=== PATIENT | female | born 1980 | race African-American/Black ===

== ENCOUNTER 2017-03-11 18:16 | Emergency (ER) | payer OTHER ==
[~2017-03-11] VITALS: Ht 170.2 cm; Wt 61.7 kg
[~2017-03-11 18:16] MED LIST: ATENOLOL25 MG PO; CARAFATE1 GM/10 M1 PO; CHANTIX1 MG PO; CYCLOBENZAPRINE10 M1 PO; DRISDOL50000 IU PO; GABAPENTIN400 M2 PO; GABAPENTIN400 MG PO; HUMALOG 100U100 U/ML SC; KETOROLAC TROME10 M1 PO; LEVEMIR FLEX100 U/ML SC; LEVEMIR100 U/ML SC; LEVEMIR100 UNIT/1 SC; LISINOPRIL10 MG PO; METHIMAZOLE10 MG PO; NEXIUM40 M1 PO; NOVOLOG100 U/ML SC; NOVOLOG100 UNIT/2 SC; OMEPRAZOLE20 M3 PO; PROTONIX 40MG T40 MG PO; TAPAZOLE 5 MG TA5 MG PO; VICODIN 300 MG-1 TAB PO; VITAMIN D250000 UNIT PO
--- NOTE | 2017-03-11 20:43 | ED HEADACHE COMPLAINT ---
History of Present Illness General Chief Complaint: Headache Stated Complaint: COHEN Source: patient Exam Limitations: no limitations Vital Signs & Intake/Output Vital Signs & Intake/Output Vital Signs Date Time Temp Pulse Resp B/P B/P Pulse O2 O2 Flow FiO2 Mean Ox Delivery Rate 03/11 2307 96.2 92 16 138/62 98 Room Air 03/11 1843 98.6 96 18 135/87 98 Room Air Allergies Coded Allergies: NO KNOWN ALLERGIES (06/02/14) Reconcile Medications Atenolol 25 MG TAB 1 TAB PO DAILY BP (Reported) Ergocalciferol (Vitamin D2) (Vitamin D2) 50,000 UNIT CAPSULE 1 CAP PO QSUN SUPPLEMENT (Reported) Gabapentin 400 MG CAPSULE 1 CAP PO BID NERVE PAIN (Reported) Gabapentin 400 MG CAP 2 CAP PO QPM NERVE PAIN (Reported) Insulin Aspart (Novolog) 100 UNIT/ML VIAL 0 UNITS SC TIDAC/HS DIABETES MELLITUS SLIDING SCALE BLOOD SUGAR before meals at bedtime LESS THAN 80mg/dl 0 units 0 units 80-150 mg/dl 2 units 0 units 151-200 mg/dl 3 units 0 units 201-250 mg/dl 4 units 0 units 251-300 mg/dl 5 units 2 units 301-350 mg/dl 6 units 3 units 351-400 mg/dl 7 units 4 units more than 400 mg/dl 8 units 5 units Insulin Detemir (Levemir) 100 UNIT/ML VIAL 5 UNITS SC BID DIABETES Methimazole (Tapazole 5 MG Tablet) 5 MG TAB 5 MG PO DAILY Grave's disease Omeprazole 20 MG TABLET.DR 1 TAB PO BID GI (Reported) Sucralfate (Carafate) 1 GRAM/10 ML ORAL.SUSP 10 ML PO TID GI (Reported) 1 hour before food Triage Note: PT TO TRIAGE WITH C/O MIGRAINE AND NAUSEA x1WEEK, PT HAS BEEN TAKING TYLENOL,MOTRIN, AND FIORICET WITH NO RELIEF. PAIN 8/. VSS. Triage Nurses Notes Reviewed? yes Onset: Gradual Duration: week(s): (1) Timing: multiple episodes today Quality/Severity: mild, moderate Head Injury Location: frontal No Modifying Factors: none : No Patient currently breastfeeds: No HPI: This is a 36-year-old female with history of insulin-dependent diabetes, hypertension, hypothyroidism who presents to the ER for chief complaint of migraine headache on and off for the past one week. Patient has a self-reported history of migraine headaches. She states that for the last 2 days she was headache free but then again this morning woke up with a headache. Headache is between her eyes and radiates to the back of her head. History of similar headaches but has never lasted this long. Denies any fever or chills but denies any confusion. Denies any trauma. She is not on any blood thinners. She's been trying [id number] medications without any relief. Patient is on insulin pump and blood sugars have been within normal limits. Last blood sugar in the ER today was 97. Past History Travel History Traveled to [place] past 21 day No Medical History Any Pertinent Medical History? see below for history Neurological: NONE EENT: NONE Cardiovascular: hypertension Respiratory: NONE Gastrointestinal: GERD Hepatic: NONE Renal: NONE Musculoskeletal: NONE Psychiatric: NONE Endocrine: diabetes, Grave's disease, hyperthyroidism Blood Disorders: NONE Cancer(s): NONE MANAGER PROPOSAL/Reproductive: NONE History of MRSA: No History of VRE: No History of CDIFF: No Pneumonia Vaccine: 11/23/09 Influenza Vaccine: 08/07/16 Surgical History Surgical History: tubal ligation Psychosocial History Who do you live with Family Services at Home None What is your primary language Azeri Tobacco Use: Current Daily Use Daily Tobacco Use Amount/Type: => 5 Cigarettes daily ETOH Use: WEEKENDS Family History Comment: SISTER - MIGRAINE BROTHER - ANEURYSM Hx Contributory? No Review of Systems Review of Systems Constitutional: Denies: chills, fever. Eyes: Reports: no symptoms. Ears, Nose, Throat, Mouth: Reports: no symptoms. Respiratory: Denies: cough, short of breath, sputum production. Cardiovascular: Denies: chest pain, palpitations. Gastrointestinal/Abdominal: Denies: abdominal pain. Genitourinary: Reports: no symptoms. Musculoskeletal: Denies: back pain, muscle pain, muscle stiffness, neck pain. Skin: Reports: no symptoms. Neurological/Psychological: Reports: headache. Hematologic/Endocrine: Denies: bruising, bleeding, polyuria, polydipsia. Endocrine: Reports: no symptoms. Immunologic/Allergic: Reports: no symptoms. All Other Systems: Reviewed and Negative Physical Exam Physical Exam General Appearance: well developed/nourished, alert, awake, mild distress Head: atraumatic Eyes: Bilateral: normal appearance, PERRL, EOMI. Ears, Nose, Throat: normal pharynx, hearing grossly normal Neck: normal inspection, supple, full range of motion Respiratory: normal breath sounds, chest non-tender, no respiratory distress Cardiovascular: regular rate/rhythm Gastrointestinal: normal bowel sounds, soft, non-tender Back: normal inspection, normal range of motion Extremities: normal inspection, normal capillary refill, normal range of motion, no edema Psychiatric: awake, alert, oriented x 3 Cranial Nerves: normal hearing, normal speech, PERRL, NO MENINGISMUS. NEGATIVE KERNIG/BRUDZINSKI Coordination/Gait: normal gait Motor/Sensory: no motor/sensory deficits Skin: intact, normal color, warm/dry Core Measures Severe Sepsis Present: No Septic Shock Present: No Progress Differential Diagnosis: IC mass/tumor, migraine COHEN, musculoskeletal pain, subarach. Hem., tension COHEN, temporal arteritis, TMJ syndrome, viral cephalgia Plan of Care: Current Medications Sig/Claudia Start time Last Medication Dose Stop Time Status Admin Ketorolac 30 MG ONCE ONE 03/11 2115 UNVr Tromethamine 03/11 2116 (Toradol) Promethazine HCl 25 MG ONCE ONE 03/11 2115 UNVr (Phenergen) 03/11 2116 Sodium Chloride 1,000 ML BOLUS ONE 03/11 2115 UNVr (Normal Saline 0.9%) 03/11 2214 6:15 PM PATIENT REPORTS RELIEF OF HEADACHE AFTER IV MEDS. STILL STLEEPY FROM THE PHENERGEN. WILL REEVALUATE FOR DISCHARGE. (ALEXX CHRISTOPHER,ALBERTO) Departure Departure Time of Disposition: 2324 Disposition: HOME OR SELF CARE Condition: Stable Clinical Impression Primary Impression: Migraine headache Referrals: JACKELIN ALCALA APRN (PCP/Family) MOLINA CHRISTOPHER,YAHIR Oh. Additional Instructions: Follow up with your doctor in the offcie and with the neurologist listed. Return as needed. Departure Forms: Customer Survey General Discharge Information
[2017-03-12 00:14] VITALS: BP 132/88
== END 2017-03-12 00:14 ==
LOC: ERH 18:16
DX: G43.909 Migraine, unspecified, not intractable, without status migrainosus (principal)
CPT/HCPCS: 96361; 96374; 96375; J1885; J2550

== ENCOUNTER 2018-05-11 17:44 | Emergency (ER) | payer OTHER ==
[~2018-05-11] VITALS: Ht 170.2 cm; Wt 64.9 kg
[~2018-05-11 17:44] MED LIST changes: -GABAPENTIN400 MG PO; +LYRICA75 M1 PO
[2018-05-11 18:22] LABS: ABSOLUTE BASOPHIL COUNT 0.1 /CUMM (0.0-0.2); ABSOLUTE EOSINOPHIL COUNT 0 /CUMM (0.0-0.7); ABSOLUTE GRANULOCYTE CT 9.4 /CUMM (1.4-6.5); ABSOLUTE LYMPH COUNT 1.8 /CUMM (1.2-3.4); BASOPHIL % 0.5 % (0.0-2.0); EOSINOPHIL % 0.1 % (0-5); GRANULOCYTE % 76.6 % (42.2-75.2); HEMATOCRIT 36.6 % (37-47); MEAN CORPUSCULAR HGB 29.5 PG (27.0-31.0); MEAN CORPUSCULAR HGB CONC 32.7 G/DL (33.0-37.0); MEAN CORPUSCULAR VOLUME 90.2 FL (81.0-99.0); MEAN PLATELET VOLUME 8.3 FL (7.4-10.4); PLATELET COUNT 199 /CUMM (130-400); RBC DISTRIBUTION WIDTH 13.8 % (11.5-14.5); RED BLOOD CELL CT 4.05 /CUMM (4.20-5.40); WHITE BLOOD CELL COUNT 12.3 /CUMM (4.8-10.8)
--- NOTE | 2018-05-11 19:06 | ED GENERAL ADULT ---
History of Present Illness General Chief Complaint: General Adult Stated Complaint: "I THINK I HAVE THE FLU" Source: patient Exam Limitations: no limitations Vital Signs & Intake/Output Vital Signs & Intake/Output Vital Signs Date Time Temp Pulse Resp B/P B/P Pulse O2 O2 Flow FiO2 Mean Ox Delivery Rate 05/11 2045 98.3 05/11 193 105 18 133/90 98 Room Air 05/11 1753 99.7 118 18 126/82 99 Room Air ED Intake and Output 05/12 0000 05/11 1200 Intake Total 0 Output Total Balance 0 Intake, Oral 0 Patient 143 lb Weight Weight Reported by Patient Measurement Method Allergies Coded Allergies: NO KNOWN ALLERGIES (06/02/14) Reconcile Medications Ciprofloxacin HCl (Cipro) 500 MG TABLET 1 TAB PO BID uti Gabapentin 400 MG CAPSULE 1-2 CAP PO BID NERVE PAIN (Reported) Gabapentin 400 MG CAPSULE 2-3 CAP PO QPM NEUROPATHY (Reported) Insulin Aspart (Novolog) 100 UNIT/ML VIAL 0 UNITS SC TIDAC/HS DIABETES MELLITUS SLIDING SCALE BLOOD SUGAR before meals at bedtime LESS THAN 80mg/dl 0 units 0 units 80-150 mg/dl 2 units 0 units 151-200 mg/dl 3 units 0 units 201-250 mg/dl 4 units 0 units 251-300 mg/dl 5 units 2 units 301-350 mg/dl 6 units 3 units 351-400 mg/dl 7 units 4 units more than 400 mg/dl 8 units 5 units Insulin Detemir (Levemir) 100 UNIT/ML VIAL 6 UNITS SC BID DIABETES Pregabalin (Lyrica) 75 MG CAPSULE 1 CAP PO QPM NEUROPATHY (Reported) Triage Note: PT STATES SHE THINKS SHE HAS THE FLU. PT HAS FEVER COLD CHILLS AND HER BODY ACHES. PT STATES THIS BEGAN LAST EVENING. PT STATES SHE HAD A FEVER THIS AM. PT DENIES COUGH. Triage Nurses Notes Reviewed? yes Onset: Gradual Duration: day(s): Timing: recent history Injury Environment: home Severity: moderate : No Patient currently breastfeeds: No HPI: 37yo female with hx of HTN, DM presents to ED complaining of body aches beginning yesterday with fever and chills beginning this morning. PAtient reports diminished appetite. PAtient reports blurry vision and headache for the past week. PAtient reports dysuria which she believes is mild. PAtient denies nausea, vomiting, diarrhea. (OfeliaMely Mcdowell) Past History Travel History Traveled to [place] past 21 day No Medical History Any Pertinent Medical History? see below for history Neurological: NONE EENT: NONE Cardiovascular: hypertension Respiratory: NONE Gastrointestinal: GERD Hepatic: NONE Renal: NONE Musculoskeletal: NONE Psychiatric: NONE Endocrine: diabetes, Grave's disease, hyperthyroidism, vitamin D deficiency Blood Disorders: NONE Cancer(s): NONE DRIVER STARTING GATE/Reproductive: NONE History of MRSA: No History of VRE: No History of CDIFF: No Surgical History Surgical History: tubal ligation Psychosocial History Who do you live with Family Services at Home None What is your primary language Finnish Tobacco Use: Current Daily Use Daily Tobacco Use Amount/Type: => 5 Cigarettes daily ETOH Use: occasional use Illicit Drug Use: denies illicit drug use Family History Hx Contributory? No (Mely Dorsey) Review of Systems Review of Systems Constitutional: Reports: see HPI. EENTM: Reports: no symptoms. Respiratory: Reports: no symptoms. Cardiovascular: Reports: no symptoms. GI: Reports: no symptoms. Genitourinary: Reports: see HPI. Musculoskeletal: Reports: no symptoms. Skin: Reports: see HPI. Neurological/Psychological: Reports: no symptoms. Hematologic/Endocrine: Reports: no symptoms. Immunologic/Allergic: Reports: no symptoms. All Other Systems: Reviewed and Negative (Mely Dorsey) Physical Exam Physical Exam General Appearance: well developed/nourished, no apparent distress, alert, awake Head: atraumatic, normal appearance Eyes: Bilateral: normal appearance. Ears, Nose, Throat: normal pharynx, normal ENT inspection, hearing grossly normal Neck: normal inspection, supple, full range of motion, no LAD Respiratory: normal breath sounds, no respiratory distress, lungs clear Cardiovascular: tachycardia Peripheral Pulses: 2+ radial (R), 2+ radial (L) Gastrointestinal: normal bowel sounds, soft, non-tender, no organomegaly Extremities: normal inspection, normal range of motion, no CVA tenderness Neurologic/Psych: awake, alert, oriented x 3 Skin: papule on back without surrounding rash/erythema, nontender Core Measures ACS in differential dx? No CVA/TIA Diagnosis: No Sepsis Present: No Sepsis Focused Exam Completed? No (Mely Dorsey) Progress Differential Diagnoses I considered the following diagnoses in my evaluation of the patient: [UTI, pyelonephritis, viral syndrome, appendicitis, lyme disease] Plan of Care: Orders Procedure Date/time Status Add-on Test (ER Only) 05/11 2038 Active Add-on Test (ER Only) 05/11 1916 Active CULTURE,URINE 05/11 1825 Active LYME TITRE 05/11 1811 Active URINE 05/11 1755 Complete URINALYSIS 05/11 1755 Complete LIPASE 05/11 1755 Complete COMPREHENSIVE METABOLIC PANEL 05/11 1755 Complete CBC WITHOUT DIFFERENTIAL 05/11 1755 Complete Laboratory Tests 05/11/181819: Urine Color YEL, Urine Clarity CLDY H, Urine pH 7.0, Ur Specific [place] 1.015, Urine Protein 100 H, Urine Ketones NEG, Urine Nitrite NEG, Urine Bilirubin NEG, Urine Urobilinogen 1.0, Ur Leukocyte Esterase MOD H, Ur Microscopic SEDIMENT EXAMINED, Urine RBC 25-50 H, Urine WBC 50-75 H, Ur Epithelial Cells RARE, Urine Bacteria PACKD H, Urine Hemoglobin LARGE H, Urine Glucose >=1000 H, Urine Test NEGATIVE 05/11/181810: Anion Gap 10, Estimated GFR > 60, BUN/Creatinine Ratio 23.3, Glucose 85, Calcium 9.2, Total Bilirubin 1.0, AST 16, ALT 20, Alkaline Phosphatase 101, Total Protein 7.0, Albumin 3.9, Globulin 3.1, Albumin/Globulin Ratio 1.3, Lipase < 10 L, CBC w Diff NO MAN DIFF REQ, RBC 4.05 L, MCV 90.2, MCH 29.5, MCHC 32.7 L, RDW 13.8, MPV 8.3, Gran % 76.6 H, Lymphocytes % 14.7 L, Monocytes % 8.1, Eosinophils % 0.1, Basophils % 0.5, Absolute Granulocytes 9.4 H, Absolute Lymphocytes 1.8, Absolute Monocytes 1.0 H, Absolute Eosinophils 0, Absolute Basophils 0.1, Lyme Disease Antibody Pending Microbiology 05/11 1825 URINE ROUT: Urine Culture - RECD "bug bite" on patient's back was visualize, no evidence of cellulitis or erythema migrans. Lyme titer is pending. Patient's labs show mild leukocytosis. Urinalysis shows UTI. The patient has no CVA tenderness to indicate pyelonephritis. Patient has no abdominal tenderness at this time, no right lower quadrant abdominal tenderness, the diagnoses of appendicitis was considered however given her abdominal exam it is less likely. The patient was given strict return precautions. The patient still tachycardia has improved without treatment here in the emergency department. Patient to begin antibiotics and increase oral fluid rehydration. The patient is nontoxic appearing, no acute distress. The patient agrees with the plan of care. The patient was discussed with Dr. Santamaria who agrees with this plan. Initial ED EKG: none (Mely Dorsey) Departure Departure Disposition: HOME OR SELF CARE Condition: Stable Clinical Impression Primary Impression: UTI (urinary tract infection) Qualifiers: Urinary tract infection type: acute cystitis Hematuria presence: without hematuria Qualified Code: N30.00 - Acute cystitis without hematuria Referrals: Shelby Bhatia APRN (PCP/Family) Additional Instructions: Take full course of antibiotics. Take Tylenol and ibuprofen as prescribed as needed for fevers and body aches. Increase your fluids. Return if having worsening symptoms or concerns. Please note that there might be incidental findings in your evaluation that are unrelated to the current emergency department visit. Please notify your primary care doctor about this emergency department visit in order to obtain and review all of the testing performed so that these incidental findings can be monitored as needed. If you had an x-ray performed, please understand that some fractures may not be seen on the initial set of x-rays. If your symptoms persist you might need a repeat set of x-rays to check for such a fracture. If you had a laceration evaluated, please understand that foreign bodies such as glass or wood may not be visible to the naked eye or on plain x-rays. If the wound becomes red, swollen, increasingly more painful or if there is any drainage from the wound, please have it reevaluated by a physician for the possibility of a retained foreign body. If you're unable to follow up as outlined in the discharge instructions please return to the emergency department. Thank you for choosing the [facility] Emergency Department for your care. It was a pleasure to serve you today. Departure Forms: Customer Survey General Discharge Information Prescriptions: Current Visit Scripts Ciprofloxacin HCl (Cipro) 1 TAB PO BID #14 TAB (Mely Dorsey) PA/ICE BAG ASSEMBLER Co-Sign Statement Statement: ED Attending supervision documentation- [] I saw and evaluated the patient. I have also reviewed all the pertinent lab results and diagnostic results. I agree with the findings and the plan of care as documented in the PA's/ICE BAG ASSEMBLER's documentation. [X] I have reviewed the ED Record and agree with the PA's/ICE BAG ASSEMBLER's documentation. [] Additions or exceptions (if any) to the PAs/ICE BAG ASSEMBLER's note and plan are summarized below: [] (Hina CHRISTOPHER,Sd Ross) Critical Care Note Critical Care Note Critical Care Time: non-applicable (Ofelia BUCHANAN,Mely Ndiaye)
[2018-05-11 19:33] VITALS: BP 133/90
[2018-05-11] MEDS ORDERED: CIPRO500 M1 PO (20:37)
== END 2018-05-11 20:46 ==
LOC: ERH 17:44
PROVIDERS: Physician Assistant Medical
DX: N39.0 Urinary tract infection, site not specified (principal)
CPT/HCPCS: 86618; 81001; 81025; 87086